=== PATIENT | male | born 1955 | race Caucasian/White ===

== ENCOUNTER 2023-10-16 14:14 | Emergency (ER) | payer MEDICARE, BC ==
[~2023-10-16] VITALS: Ht 180.3 cm; Wt 86.2 kg
[~2023-10-16 14:14] MED LIST: ALBU90OI6; FLUT110OIA; LEVSOD100 PO; LISI5; MELA3 PO; ZOLP5 PO
[2023-10-16 15:12] VITALS: BP 119/79
== END 2023-10-16 17:27 | disposition home or self-care (01) ==
LOC: ER 14:14
DX: M79.652 Pain in left thigh (principal); E05.00 Thyrotoxicosis with diffuse goiter without thyrotoxic crisis or storm; Z79.51 Long term (current) use of inhaled steroids; Z79.899 Other long term (current) drug therapy; V00.111A Fall from in-line roller-skates, initial encounter; Y93.51 Activity, roller skating (inline) and skateboarding
CPT/HCPCS: 76882; 99283-25